=== PATIENT | female | born 1995 | race Caucasian/White ===

== ENCOUNTER 2021-10-12 23:42 | Emergency (ER) | payer SELFPAY ==
[~2021-10-12] VITALS: Ht 165.1 cm; Wt 60.5 kg
[2021-10-13] MEDS ORDERED: ACETAMINOPHEN 325MG TABLET PO ONE (00:15)
[2021-10-13 00:49] LABS: BASOPHILS % 0.5 % (0.0-2.0); EOSINOPHILS % 0.6 % (0.0-5.0); HEMATOCRIT. 32.9 % (36.0-48.0); HEMOGLOBIN. 11.4 g/dL (12.0-16.0); LYMPHOCYTES % 32.9 % (20.0-50.0); MEAN CORPUSCULAR HEMOGLOBIN 29.5 pg (28.0-32.0); MEAN CORPUSCULAR VOLUME 85.2 fL (81.0-99.0); MEAN PLATELET VOLUME 7.3 fl (7.4-10.4); MONOCYTES % 8.5 % (2.0-8.0); NEUTROPHILS % 57.5 % (40.0-76.0); PLATELET 170 x1000/uL (130-400); RED BLOOD CELL COUNT 3.86 mill/uL (4.2-5.4); RED CELL DISTRIBUTION WIDTH 14.8 % (11.6-14.6)
[2021-10-13 00:55] LABS: CHLORIDE 103 mEq/L (98-107)
[2021-10-13 01:18] LABS: B-HCG QUANTITATIVE 20396 mIU/mL (<3)
[2021-10-13] MEDS ORDERED: TOPUD MT (02:42)
[2021-10-13 03:04] VITALS: BP 105/67
== END 2021-10-13 03:06 | disposition home or self-care (01) ==
LOC: ER 23:42
DX: O99.892 Other specified diseases and conditions complicating childbirth (principal); S80.02XA Contusion of left knee, initial encounter; M25.512 Pain in left shoulder; Y07.03 Male partner, perpetrator of maltreatment and neglect; Y04.2XXA Assault by strike against or bumped into by another person, initial encounter; Z3A.17 17 weeks gestation of pregnancy; Y93.89 Activity, other specified; Y92.89 Other specified places as the place of occurrence of the external cause
CPT/HCPCS: 36415; 76805; 80053; 84702; 85025; 86850; 86900; 99284